=== PATIENT | female | born 1985 | race Caucasian/White ===

== ENCOUNTER 2017-01-19 10:27 | Emergency (ER) | payer MEDICAID ==
[2017-01-19 10:33] VITALS: BP 125/67
--- NOTE | 2017-01-19 11:08 | ER Document Report ---
HPI - HPI Patient complains to provider of: right hand pain Pain Level: 5 Context: Patient is a 31-year-old female presents emergency room complaining of right hand pain. Patient states that she was getting out of bed last evening when her hand slipped on her footboard in her fingers got caught on both sides of the footboard. She admits to pain along the fifth metacarpal. Full range of motion but with pain minimal swelling over top the fifth metacarpal but no evidence of deformity. Patient denies any previous hand injury or surgery on that hand. Denies any past medical issues. Has been using ice but has not been taking Tylenol or Motrin at home. - DERM Skin Color: Normal Past Medical History - Social History Smoking Status: Never Smoker Family History: Reviewed & Not Pertinent Patient has suicidal ideation: No Patient has homicidal ideation: No Renal/ Medical History: Denies: Hx Peritoneal Dialysis Past Surgical History: Reports: Hx Cholecystectomy, Hx Tubal Ligation - Immunizations Hx Diphtheria, Pertussis, Tetanus Vaccination: Yes - 08/12/12 Vertical Provider Document - CONSTITUTIONAL Agree With Documented VS: Yes Exam Limitations: No Limitations General Appearance: WD/WN, No Apparent Distress - INFECTION CONTROL TRAVEL OUTSIDE OF THE [place] IN LAST 30 DAYS: No - RESPIRATORY O2 Sat by Pulse Oximetry: 98 - CARDIOVASCULAR Pulses: Normal: Radial Notes: Capillary refill less than 2 seconds in all upper extremity digits. - MUSCULOSKELETAL/EXTREMETIES Musculoskeletal/Extremeties: MAEW, FROM, Tender Notes: Evidence of soft tissue swelling that is mild. - NEURO Level of Consciousness: Awake, Alert, Appropriate Motor/Sensory: No Motor Deficit, No Sensory Deficit - DERM Integumentary: Warm, Dry, No Rash. negative: Laceration Course - Re-evaluation Re-evalutation: 01/19/17 11:32 Evidence of fourth metacarpal fracture that is nondisplaced. We'll splint and have her follow up with orthopedic. - Vital Signs Vital signs: Temp Pulse Resp BP Pulse Ox 97.5 F 64 18 125/67 98 01/19/17 10:30 01/19/17 10:30 01/19/17 10:30 01/19/17 10:30 01/19/17 10:30 - Diagnostic Test Radiology reviewed: Image reviewed, Reports reviewed Discharge - Discharge Clinical Impression: Closed fracture of 4th metacarpal Condition: Good Disposition: HOME, SELF-CARE Instructions: Splint Precautions ([facility]), Fractured Metacarpal ([facility]) Additional Instructions: Please follow up with ortho for evaluation. Given that a co-pay will be expected , please call Joshua Rivera (case management) for assistance at [phone] Prescriptions: Oxycodone HCl/Acetaminophen [Percocet 5-325 mg Tablet] 1 - 2 tab PO Q4H PRN #15 tablet PRN Reason: Referrals: TAMEKA LEACH DO [ACTIVE STAFF] - Follow up in 1 week
[2017-01-19] MEDS ORDERED: IBUPROFEN 800 MG TABLET PO ONE (11:20)
== END 2017-01-19 11:30 | disposition home or self-care (01) ==
LOC: ER 10:27
PROC: 2W3CX1Z Immobilization of Right Lower Arm using Splint (ICD-10-PCS; principal; 2017-01-19)
DX: S62.304A Unspecified fracture of fourth metacarpal bone, right hand, initial encounter for closed fracture (principal); M79.641 Pain in right hand; W23.1XXA Caught, crushed, jammed, or pinched between stationary objects, initial encounter; Y92.003 Bedroom of unspecified non-institutional (private) residence as the place of occurrence of the external cause; Z90.49 Acquired absence of other specified parts of digestive tract; Z98.51 Tubal ligation status
CPT/HCPCS: 99283; 73130; 29125; J3490